=== PATIENT | female | born 1985 | race Two or more races ===

== ENCOUNTER 2024-01-14 04:55 | Inpatient (IN) | payer MEDICAID, OTHER ==
[~2024-01-14] VITALS: Ht 145 cm; Wt 71.7 kg
[2024-01-14] VITALS (18 sets, daily range): BP systolic 97–128; BP diastolic 56–80; PULSE 55–99; RESP 14–21; TEMP 97.7–98.5; O2SAT 92–100
[2024-01-14] MEDS: LACTATED RINGER'S 1,000 ML IV ONE (06:02)
[2024-01-14] MEDS ORDERED: PREN-96 PO (06:16)
[2024-01-14 06:26] LABS: Basophils # (auto) 0 10 ^3/uL (0-0.2); Basophils % (auto) 0.4 % (0.0-2.0); Eosinophils # (auto) 0 10 ^3/uL (0-0.8); Eosinophils % (auto) 0.3 % (0.0-7.0); Hematocrit 39.9 % (36.0-46.0); Hemoglobin 13.7 g/dL (12.2-16.2); Lymphocytes % (auto) 20.4 % (10.0-50.0); Mean Corpuscular Hemoglobin 30.2 pg (28.0-32.0); Mean Corpuscular Hgb Conc. 34.2 g/dL (32.0-36.0); Mean Corpuscular Volume 88.1 fL (80.0-100.0); Monocytes # (auto) 0.5 10 ^3/uL (0-1.3); Monocytes % (auto) 5.3 % (0.0-12.0); Neutrophils # (auto) 7.2 10 ^3/uL (1.6-8.6); Neutrophils % (auto) 73.6 % (37.0-80.0); Red Blood Cells 4.53 10^6/uL (4.0-5.20); Red Cell Distribution Width 13.8 % (11.8-14.3); White Blood Cell 9.7 10^3/uL (4.4-10.8)
[2024-01-14 06:31] LABS: INR 0.94 (0.9-1.15); Partial Thromboplastin Time 26.1 SEC (24.5-34.5)
[2024-01-14 06:37] LABS: Alanine Aminotransferase 24 U/L (7-40); Albumin 3.6 g/dL (3.2-4.8); Alkaline Phosphatase 224 U/L (46-116); Anion Gap 10 (5-15); Aspartate Aminotransferase 32 U/L (13-40); BUN/Creatinine Ratio 8.8 (10.0-20.0); Bilirubin, Total 0.4 mg/dL (0.2-1.0); Blood Urea Nitrogen 7 mg/dL (9-23); Calcium 8.5 mg/dL (8.7-10.4); Carbon Dioxide 20 mmol/L (20-30); Chloride 106 mmol/L (98-107); Glucose 80 mg/dL (74-106); Potassium 3.7 mmol/L (3.5-5.1); Sodium 136 mmol/L (136-145); Total Protein 6.1 g/dL (5.7-8.2)
[2024-01-14] MEDS ORDERED: oxyTOCIN 10 UNIT/ML 10ML VIAL ONE (06:44)
[2024-01-14] MEDS ORDERED: DexAMETHasone SOD PHOS 10MG/1ML VIAL INJ ONE (06:44)
[2024-01-14] MEDS ORDERED: ONDANSETRON HCL 4 MG/2 ML VIAL ONE (06:44)
[2024-01-14] MEDS ORDERED: fentaNYL CITRATE 100 MCG/2 ML VL ONE (06:45)
[2024-01-14] MEDS ORDERED: MORPHINE SULF PF 5 MG/10 ML VIAL ONE (06:45)
[2024-01-14] MEDS: LACTATED RINGER'S 1,000 ML IV SCH (06:47)
[2024-01-14] MEDS: ceFAZolin 1GM/50ML 50 ML IV ONE (06:54)
[2024-01-14] MEDS ORDERED: GUM (CHEWING) 1 GUM CHEW CHEW ONE ×2 (07:00→09:00)
[2024-01-14] MEDS ORDERED: ceFAZolin 1GM/50ML 50 ML IV SCH ×3 (07:00→15:00)
[2024-01-14] MEDS: LACT. RINGERS/OXYTOCIN 20UNITS 1,000 ML IV ONE (07:00)
[2024-01-14] MEDS ORDERED: ONDANSETRON HCL 4 MG/2 ML VIAL IV PRN ×3 (07:00→09:00)
[2024-01-14] MEDS ORDERED: HYDR-4902 PO (07:05)
[2024-01-14] MEDS ORDERED: IBUP-1456 PO (07:05)
[2024-01-14] MEDS ORDERED: DOCU-94 PO (07:05)
[2024-01-14] MEDS ORDERED: SODIUM CHLORIDE LOCK 10 ML ONE (07:15)
[2024-01-14] MEDS ORDERED: PHENYLEPHRINE HCL 10 MG/ML VL ONE (07:15)
[2024-01-14] MEDS ORDERED: ePHEDrine SULFATE 50 MG/ML AMP ONE (07:17)
[2024-01-14] MEDS: CARBOPROST TROMETHAMINE 250 MCG/1ML VIAL IM ONE (07:35)
[2024-01-14 07:44] LABS: Urine Bacteria None Seen /hpf (None Seen)
[2024-01-14 08:04] LABS: Urine Blood Negative /uL (Negative); Urine Clarity Clear (Clear); Urine Color Light-Yellow (Yellow); Urine Mucus FEW (None Seen); Urine Protein, UAD TRACE (Negative); Urine Specific Gravity 1.017 (1.001-1.035); Urine Urobilinogen Normal (Negative); Urine WBC 2 /hpf (0 - 5); Urine pH 5.5 (5.0-9.0)
[2024-01-14] MEDS ORDERED: NALBUPHINE HCL 10 MG/1ml INJECTION IV ONE (08:15)
[2024-01-14] MEDS ORDERED: NALOXONE HCL 0.4 MG/ML VIAL IV PRN (08:15)
[2024-01-14] MEDS ORDERED: diphenhdrAMINE HCL 50 MG/1 ML VL IV PRN (08:15)
[2024-01-14] MEDS ORDERED: HYDROmorphone HCL 2 MG/ML VL/or syr IV PRN (08:15)
[2024-01-14] MEDS ORDERED: ACETAMINOPHEN IV 1000 MG/100ML (10MG/ML) IV PRN (08:30)
[2024-01-14 08:33] LABS: Amphetamine Screen, Urine Neg (NEGATIVE); Barbiturate Scree,Urine Neg (NEGATIVE); Benzodiazephine Screen, Urine Neg (NEGATIVE)
[2024-01-14 08:34] LABS: Cannabinoid Screen, Urine Neg (NEGATIVE); Cocaine Screen, Urine Neg (NEGATIVE); Opiate Scree,Urine Neg (NEGATIVE); Phencyclidine Screen, Urine Neg (NEGATIVE)
[2024-01-14] MEDS ORDERED: MORPHINE SULFATE 4 MG/ML SYR/VIAL IV PRN (09:00)
[2024-01-14] MEDS ORDERED: ePHEDrine SULFATE 50 MG/ML AMP IV PRN (09:00)
[2024-01-14] MEDS: ACETAMINOPHEN IV 1000 MG/100ML (10MG/ML) IV PRN (14:06)
[2024-01-14] MEDS: ceFAZolin 1GM/50ML 50 ML IV SCH (14:51)
[2024-01-14] MEDS: KETOROLAC TROMETH 30 MG/ML 1ML VIAL IV PRN (19:22)
[2024-01-14 21:40] LABS: Basophils # (auto) 0 10 ^3/uL (0-0.2); Basophils % (auto) 0.1 % (0.0-2.0); Eosinophils # (auto) 0 10 ^3/uL (0-0.8); Hemoglobin 11.9 g/dL (12.2-16.2); Lymphocytes # (auto) 1.2 10 ^3/uL (0.4-5.4); Mean Corpuscular Hemoglobin 29.8 pg (28.0-32.0); Mean Corpuscular Hgb Conc. 34.1 g/dL (32.0-36.0); Mean Corpuscular Volume 87.5 fL (80.0-100.0); Monocytes # (auto) 0.7 10 ^3/uL (0-1.3); Monocytes % (auto) 3.9 % (0.0-12.0); Neutrophils # (auto) 15.3 10 ^3/uL (1.6-8.6); Nucleated Red Blood Cells % 0.1 %; Red Cell Distribution Width 13.9 % (11.8-14.3); White Blood Cell 17.2 10^3/uL (4.4-10.8)
[2024-01-15] VITALS (10 sets, daily range): BP systolic 84–112; BP diastolic 49–68; PULSE 59–78; RESP 14–18; TEMP 97.9–98.6; O2SAT 95–100
[2024-01-15 07:06] LABS: RPR Non Reactive (Non Reactive)
[2024-01-15 08:37] LABS: Basophils # (auto) 0 10 ^3/uL (0-0.2); Basophils % (auto) 0.2 % (0.0-2.0); Eosinophils # (auto) 0 10 ^3/uL (0-0.8); Eosinophils % (auto) 0.1 % (0.0-7.0); Hematocrit 34.5 % (36.0-46.0); Lymphocytes % (auto) 16.1 % (10.0-50.0); Mean Corpuscular Hemoglobin 30.8 pg (28.0-32.0); Mean Corpuscular Hgb Conc. 34.8 g/dL (32.0-36.0); Mean Corpuscular Volume 88.4 fL (80.0-100.0); Monocytes # (auto) 0.5 10 ^3/uL (0-1.3); Monocytes % (auto) 3.7 % (0.0-12.0); Neutrophils # (auto) 9.9 10 ^3/uL (1.6-8.6); Neutrophils % (auto) 79.9 % (37.0-80.0); Red Cell Distribution Width 14.3 % (11.8-14.3); White Blood Cell 12.3 10^3/uL (4.4-10.8)
[2024-01-15] MEDS ORDERED: LACTATED RINGER'S 1,000 ML IV SCH (11:15)
[2024-01-15] MEDS ORDERED: HYDROcodone-ACET 5/325MG TAB PO PRN ×2 (11:15)
[2024-01-15] MEDS ORDERED: WITCH HAZEL-GLYCERIN PAD TOP PRN (11:15)
[2024-01-15] MEDS ORDERED: NALO4SPR2 (11:42)
[2024-01-15] MEDS: IBUPROFEN 800 MG TAB PO PRN (12:57)
[2024-01-15] MEDS: SIMETHICONE 80 MG CHEWABLE TABLET PO SCH (12:57)
[2024-01-16 03:00] VITALS: BP 108/61; PULSE 64; RESP 15; TEMP 98; O2SAT 98
[2024-01-16 07:00] VITALS: BP 100/66; PULSE 63; RESP 18; TEMP 97.9; O2SAT 97
[2024-01-16 11:15] VITALS: BP 103/73; PULSE 88; RESP 18; TEMP 98; O2SAT 98
[2024-01-16 15:00] VITALS: BP 122/67; PULSE 90; RESP 15; TEMP 98.8; O2SAT 97
[2024-01-16] MEDS ORDERED: HYDR5CRE3 PR (15:03)
[2024-01-16] MEDS: MEASLES, MUMPS & RUBELLA VAC(MMRII) 0.5ML SC ONE (17:44)
[2024-01-16] MEDS: TETANUS-DIPTH-ACEL PERTUSSIS 0.5ML SYR Tdap IM ONE (17:45)
[2024-01-16 19:06] LABS: Treponema pallidum Ab (FTA-Ab) Non Reactive (Non Reactive)
== END 2024-01-16 18:43 | disposition home or self-care (01) | DRG 540 ==
LOC: UNDOADMIN 04:55 → LDRP 04:55 → INTOOBSV 05:40 → OBSVTOIN 05:40 → LDRP 05:48
PROVIDERS: ADMIT Obstetrics & Gynecology; ATTEND Obstetrics & Gynecology
PROC: 10D00Z1 Extraction of Products of Conception, Low, Open Approach (ICD-10-PCS; principal; 2024-01-14 07:06)
DX: O69.81X0 Labor and delivery complicated by cord around neck, without compression, not applicable or unspecified (principal); R71.0 Precipitous drop in hematocrit; O34.211 Maternal care for low transverse scar from previous cesarean delivery; Z37.0 Single live birth; Z3A.38 38 weeks gestation of pregnancy
CPT/HCPCS: 36415; 59025; 80053; 80307; 81001; 81002; 85025; 85610; 85730; 86592; 86850; 86900; 86901; 90715; 94760; 94762; 96360; 96361; 96372; 96374; G0378; J0131; J1100; J1885; J2405; J2590